=== PATIENT | female | born 1950 | race African-American/Black ===

== ENCOUNTER 2016-12-28 20:54 | Emergency (ER) | payer OTHER, MEDICAID ==
[~2016-12-28] VITALS: Ht 165.1 cm; Wt 55.8 kg
[2016-12-28 21:53] LABS: DEFINITIVE VIEW TRANSMISSION; Hemoglobin 14.6 g/dL (12.2-16.2); Platelet Count (auto) 300 10^3/uL (140-450); SUSPECT VIEW TRANSMISSION
[2016-12-28 21:55] LABS: Hematocrit 46.2 % (36.0-46.0); Mean Corpuscular Hemoglobin 23.6 pg (28.0-32.0); Mean Corpuscular Hgb Conc. 31.6 g/dL (32.0-36.0); Mean Corpuscular Volume 74.8 fL (80.0-100.0); Mean Platelet Volume 7.9 fL (7.4-10.4); Red Cell Distribution Width 14.1 % (11.6-16.0); White Blood Cell 6.1 10^3/uL (4.4-10.8)
[2016-12-28 22:06] LABS: Metamyelocytes % 0; Myelocytes % 0; Promyelocytes % 0; Reactive Lymphocytes 0
[2016-12-28 22:13] LABS: Albumin 3.3 g/dL (3.4-5.0); BUN/Creatinine Ratio 18.3; Calcium 8.8 mg/dL (8.5-10.1); Potassium 3.6 mmol/L (3.5-5.1)
[2016-12-28 22:16] LABS: Bilirubin, Total 0.5 mg/dL (0.2-1.0); Total Protein 7.6 g/dL (6.4-8.2)
[2016-12-28 23:06] LABS: Platelet Estimate Adequate
[2016-12-29 03:58] LABS: Urine Bilirubin Negative (Negative); Urine Blood Negative /uL (Negative); Urine Color Yellow (Yellow); Urine Glucose Normal (Normal); Urine Hyaline Cast FEW /lpf (0 - 2); Urine Ketone Negative (Negative); Urine Mucus FEW (None Seen); Urine Nitrite Negative (Negative); Urine RBC 3 /hpf (0 - 4); Urine Squamous Epithelial Cell FEW /hpf (<5); Urine pH 5.5 (5.0-8.0)
[2016-12-29 05:55] VITALS: BP 92/59
[2016-12-29] MEDS: SODIUM CHLORIDE 0.9% 500 ML IV ONE (06:13)
[2016-12-29] MEDS: cefTRIAXone 1GM/50ML D5W 50 ML IV ONE (06:14)
== END 2016-12-29 08:58 | disposition home or self-care (01) ==
LOC: ER 20:58
DX: K29.70 Gastritis, unspecified, without bleeding (principal); J44.9 Chronic obstructive pulmonary disease, unspecified; E11.9 Type 2 diabetes mellitus without complications; I10 Essential (primary) hypertension; E07.9 Disorder of thyroid, unspecified; F17.210 Nicotine dependence, cigarettes, uncomplicated; Z88.2 Allergy status to sulfonamides; Z88.1 Allergy status to other antibiotic agents; Z90.49 Acquired absence of other specified parts of digestive tract
CPT/HCPCS: 36415; 74176; 80053; 81001; 82962; 83605; 84484; 85007; 85027; 93005; 94761; 96365; 99285; J0696; J7030

== ENCOUNTER 2022-10-21 11:47 | Emergency (ER) | payer OTHER, MEDICAID ==
[~2022-10-21] VITALS: Ht 160 cm; Wt 81.6 kg
[2022-10-21] MEDS ORDERED: SODIUM BICARBONATE 8.4% INJ 50ML SYRINGE IV ONE (11:48)
[2022-10-21] MEDS ORDERED: EPINEPHrine HCL 1 MG/10 ML SYRG IV ONE (11:48)
[2022-10-21] MEDS ORDERED: CALCIUM CHLOR(10%) 100MG/ML 10ML SYRINGE IV ONE (11:48)
[2022-10-21] MEDS ORDERED: EPINEPHrine HCL 250 ML IV SCH (12:00)
[2022-10-21] MEDS ORDERED: EPINEPHrine HCL 250 ML IV ONE (12:03)
[2022-10-21] MEDS ORDERED: NOREPINEPHRINE 8 MG/250ML KIT 250 ML IV ONE (12:08)
[2022-10-21] MEDS ORDERED: EPINEPHrine HCL 1 MG/10 ML SYRG ONE (12:09)
[2022-10-21] MEDS ORDERED: NOREPINEPHRINE 8 MG/250ML KIT 250 ML IV SCH (12:15)
[2022-10-21] MEDS ORDERED: SODIUM CHLORIDE 0.9% 500 ML IV ONE (12:15)
[2022-10-21 12:21] VITALS: BP 116/55
[2022-10-21 12:41] LABS: Albumin 1.6 g/dL (3.4-5.0); BUN/Creatinine Ratio 8.7; Bilirubin, Total 0.4 mg/dL (0.2-1.0); Calcium 6.2 mg/dL (8.5-10.1); Magnesium 2.5 mg/dL (1.6-2.6); Potassium 3.9 mmol/L (3.5-5.1)
[2022-10-21 12:54] LABS: Urine Bacteria NONE SEEN /hpf (None Seen); Urine Blood 3+ /uL (Negative); Urine Mucus FEW (None Seen); Urine Specific Gravity 1.015 (1.001-1.035); Urine WBC 1 /hpf (0 - 5)
[2022-10-21 13:02] LABS: Hematocrit 40.9 % (36.0-46.0); Hemoglobin 11.7 g/dL (12.2-16.2); Mean Corpuscular Hemoglobin 22.7 pg (28.0-32.0); Mean Corpuscular Hgb Conc. 28.7 g/dL (32.0-36.0); Mean Corpuscular Volume 79.2 fL (80.0-100.0); Red Blood Cells 5.16 10^6/uL (4.0-5.20); Red Cell Distribution Width 15.9 % (11.8-14.3); White Blood Cell 10.1 10^3/uL (4.4-10.8)
[2022-10-21 13:06] LABS: Basophils % (manual) 0 (0.0-2.0); Blast Cells 0; Metamyelocytes % 0; Myelocytes % 0; Promyelocytes % 0
[2022-10-21 13:06] LABS: Alcohol, Urine < 3.0 mg/dL (0-10); Amphetamine Screen, Urine NEGATIVE (NEGATIVE); Barbiturate Scree,Urine NEGATIVE (NEGATIVE); Benzodiazephine Screen, Urine NEGATIVE (NEGATIVE); Cannabinoid Screen, Urine NEGATIVE (NEGATIVE); Cocaine Screen, Urine NEGATIVE (NEGATIVE); Opiate Scree,Urine NEGATIVE (NEGATIVE); Phencyclidine Screen, Urine NEGATIVE (NEGATIVE)
[2022-10-21 13:49] LABS: Band Neutrophils % (manual) 1; Eosinophils % (manual) 1 (0-7); Lymphocytes % (manual) 67 (10.0-50.0); Monocytes % (manual) 10 (0-12); Reactive Lymphocytes 3
== END 2022-10-21 13:05 ==
LOC: EDBD 11:47 → ER 11:47
DX: I46.9 Cardiac arrest, cause unspecified (principal); I10 Essential (primary) hypertension; E11.9 Type 2 diabetes mellitus without complications; J44.9 Chronic obstructive pulmonary disease, unspecified; E03.9 Hypothyroidism, unspecified; F17.210 Nicotine dependence, cigarettes, uncomplicated; Z88.2 Allergy status to sulfonamides; Z88.8 Allergy status to other drugs, medicaments and biological substances; Z20.822 Contact with and (suspected) exposure to COVID-19
CPT/HCPCS: 36415; 36600; 71045; 80053; 80307; 81001; 82805; 83735; 84443; 84484; 85007; 85027; 85379; 87426; 92950; 93005; 99285; J0171; J7040